=== PATIENT | female | born 1945 | race Caucasian/White ===

== ENCOUNTER → 2019-08-13 08:44 | Outpatient (CLI) | payer OTHER, SELFPAY ==
[2019-08-13 09:41] LABS: Add Manual Diff / Slide Review NO; Basophils Absolute Auto 100 /uL (0-100); Basophils Percent Auto 0.9 % (0-2); Eosinophils Absolute Auto 400 /uL (0-450); Eosinophils Percent Auto 7.2 % (2-4); Hematocrit 42.2 % (36-46); Hemoglobin 14.5 g/dL (12.0-16.0); Lymphocytes Absolute Auto 1700 /uL (1100-4500); Lymphocytes Percent Auto 29.7 % (25-40); Mean Corpuscular HGB Conc 34.2 % (30-36); Mean Corpuscular Hemoglobin 31.3 PG (26-34); Mean Corpuscular Volume 91.4 fL (80-100); Monocytes Absolute Auto 700 /uL (0-900); Monocytes Percent Auto 12.1 % (3-14); Neutrophils Absolute Auto 2800 /uL (1500-7000); Neutrophils Percent Auto 50.1 % (50-75); Platelet Count 264 X10^3/uL (150-400); Red Blood Cell Count 4.62 X10^6/uL (4.0-5.2); Red Cell Distribution Width 13.8 % (11.6-14.8); White Blood Cell Count 5.7 X10^3/uL (4.5-11.0)
[2019-08-13 10:02] LABS: Alanine Aminotransferase 28 IU/L (<35); Albumin 4.4 g/dL (3.5-5.0); Albumin Globulin Ratio 1.9 (1.0-2.8); Alkaline Phosphatase 73 U/L (38-126); Aspartate Aminotransferase 31 IU/L (14-36); Bilirubin Total 0.4 mg/dL (0.2-1.3); Blood Urea Nitrogen 14 mg/dL (7-17); Calcium 9.9 mg/dL (8.4-10.2); Carbon Dioxide 24 mmol/L (22-32); Chloride 101 mmol/L (98-107); Cholesterol 191 mg/dL (140-199); Estimated Glomerular Filt Rate > 60.0 mL/min (>60); Globulin 2.3 g/dL (1.7-4.1); Glucose 97 mg/dL (80-110); HDL Cholesterol 79 mg/dL (40-60); HEMOLYSIS < 15 (0-50); LDL Cholesterol Calculated 83 mg/dL (<100); Potassium 4.3 mmol/L (3.4-5.1); Sodium 136 mmol/L (137-145); Total Protein 6.7 g/dL (6.3-8.2); Triglycerides 147 mg/dL (35-150)
[2019-08-13 10:04] LABS: Creatinine Urine Random 123.3 mg/dL
[2019-08-13 10:06] LABS: Microalbumi Creatinin Ratio Ur 12.1 ug/mg CR (<30); Microalbumin Urine Random 1.5 mg/dL (0-1.6)
[2019-08-13 10:30] LABS: Thyroid Stimulating Hormone 4.19 uIU/mL (0.47-4.68)
== END ==
PROVIDERS: PCP Family Medicine; Visit Provider Family Medicine
DX: E78.5 Hyperlipidemia, unspecified (principal); I10 Essential (primary) hypertension; Z13.0 Encounter for screening for diseases of the blood and blood-forming organs and certain disorders involving the immune mechanism; Z13.29 Encounter for screening for other suspected endocrine disorder
CPT/HCPCS: 36415; 80053; 80061; 82043; 82570; 84443; 85025

== ENCOUNTER → 2019-08-19 13:28 | Outpatient (CLI) | payer MEDICARE, SELFPAY ==
[2019-08-21 12:40] LABS: Fecal Immunochemical Test NOT DETECTED (NOT DETECTED)
== END ==
PROVIDERS: PCP Family Medicine; Visit Provider Family Medicine
DX: Z12.11 Encounter for screening for malignant neoplasm of colon (principal)
CPT/HCPCS: 82274

== ENCOUNTER → 2019-11-03 11:52 | Outpatient (CLI) | payer MEDICARE, SELFPAY ==
--- NOTE | 2019-11-03 11:55 | DI.MG.S_ITS ---
BILATERAL DIGITAL SCREENING MAMMOGRAM 3D/2D WITH CAD: 11/03/2019 CLINICAL: Routine screening. Comparison is made to exams dated: 08/22/2016 mammogram, 08/22/2015 mammogram, and 03/15/2014 mammogram - [facility]. There are scattered fibroglandular elements in both breasts. Current study was also evaluated with a Computer Aided Detection (CAD) system. There are benign post operative findings in the left breast. No significant masses, calcifications, or other findings are seen in either breast. There has been no significant interval change. IMPRESSION: There is no mammographic evidence of malignancy. A 1 year screening mammogram is recommended. This exam was interpreted at Station ID: [id number]. NOTE: For mammograms, a report in lay terms will be sent to the patient. Approximately 15% of breast malignancies will not be visualized mammographically. In the management of a palpable breast mass, a negative mammogram must not discourage biopsy of a clinically suspicious lesion. Electronically Signed By: Rosemarie lopez/desirae:11/03/2019 13:32:49 letter sent: Normal Exam ACR BI-RADS Category 2: Benign Finding(s) 3342F
== END ==
PROVIDERS: PCP Family Medicine; Referring Provider Family Medicine; Visit Provider Family Medicine
DX: Z12.31 Encounter for screening mammogram for malignant neoplasm of breast (principal); M85.851 Other specified disorders of bone density and structure, right thigh; Z78.0 Asymptomatic menopausal state; Z90.722 Acquired absence of ovaries, bilateral
CPT/HCPCS: 77063; 77067; 77080

== ENCOUNTER → 2019-12-02 13:08 | Outpatient (CLI) | payer MEDICARE, SELFPAY ==
--- NOTE | 2019-12-02 13:10 | DI.RAD.S_ITS ---
PROCEDURE: XR FOOT LT MIN 3V INDICATIONS: injury, swelling, deformed TECHNIQUE: 3 views of the foot were acquired. COMPARISON: None. FINDINGS: Bones: No dislocations. No suspicious bony lesions. There is a diagonal fracture through the proximal phalanx of the fourth digit, with valgus angulation at the fracture plane. Soft tissues: No tibiotalar joint effusion. Achilles tendon appears normal. IMPRESSION: Acute appearing valgus angulated proximal fourth phalanx fracture, within the diaphysis. No foreign body seen. Dictated by: Holden Hernandez M.D. on 12/02/2019 at 14:02 Approved by: Holden Hernandez M.D. on 12/02/2019 at 14:04
== END ==
PROVIDERS: PCP Family Medicine; Referring Provider Family Medicine; Visit Provider Family Medicine
DX: S92.512A Displaced fracture of proximal phalanx of left lesser toe(s), initial encounter for closed fracture (principal); X58.XXXA Exposure to other specified factors, initial encounter
CPT/HCPCS: 73630

== ENCOUNTER → 2019-12-24 14:46 | Outpatient (CLI) | payer MEDICARE, SELFPAY ==
[2019-12-24 14:50] LABS: RBC Urine None Seen (0-5/HPF)
[2019-12-24 16:17] LABS: Appearance Urine UA SL CLOUDY; Bilirubin Urine UA NEGATIVE (NEGATIVE); Color Urine UA YELLOW; Glucose Urine UA NEGATIVE (Negative); Ketones Urine UA NEGATIVE (NEGATIVE); Leukocyte Esterase Urine UA 2+ (NEGATIVE); Nitrite Urine UA NEGATIVE (Negative); Occult Blood Urine UA 2+ (Negative); Protein Urine UA NEGATIVE (Negative); Urobilinogen Urine UA 0.2 E.U./dL (0.2)
[2019-12-24 16:30] LABS: Bacteria Urine Few (2-10); Culture Indicated Urine Specimen Cultured; WBC Urine 5-10/HPF (0-5/HPF)
== END ==
PROVIDERS: PCP Family Medicine; Referring Provider Family Medicine; Visit Provider Family Medicine
DX: R30.0 Dysuria (principal); R35.0 Frequency of micturition; R39.15 Urgency of urination
CPT/HCPCS: 81001; 87077; 87086; 87186

== ENCOUNTER → 2020-11-14 07:56 | Outpatient (CLI) | payer MEDICARE, SELFPAY ==
[2020-11-14 09:28] LABS: Alanine Aminotransferase 18 IU/L (<35); Albumin 4.2 g/dL (3.5-5.0); Albumin Globulin Ratio 1.6 (1.0-2.8); Alkaline Phosphatase 67 U/L (38-126); Aspartate Aminotransferase 27 IU/L (14-36); BUN Creatinine Ratio 14.3 (6-22); Bilirubin Total 0.2 mg/dL (0.2-1.3); Blood Urea Nitrogen 10 mg/dL (7-17); Calcium 9.6 mg/dL (8.4-10.2); Carbon Dioxide 30 mmol/L (22-32); Chloride 101 mmol/L (98-107); Cholesterol 190 mg/dL (140-199); Estimated Glomerular Filt Rate > 60.0 mL/min (>60); Globulin 2.7 g/dL (1.7-4.1); Glucose 101 mg/dL (80-110); HDL Cholesterol 80 mg/dL (40-60); HEMOLYSIS < 15 (0-50); LDL Cholesterol Calculated 85 mg/dL (<100); Sodium 137 mmol/L (137-145); Total Protein 6.9 g/dL (6.3-8.2); Triglycerides 125 mg/dL (35-150)
[2020-11-14 09:29] LABS: Potassium 5.4 mmol/L (3.4-5.1)
== END ==
PROVIDERS: PCP Family Medicine; Referring Provider Family Medicine; Visit Provider Family Medicine
DX: I10 Essential (primary) hypertension (principal); E78.5 Hyperlipidemia, unspecified
CPT/HCPCS: 36415; 80053; 80061

== ENCOUNTER → 2020-11-21 15:25 | Outpatient (CLI) | payer MEDICARE, SELFPAY ==
--- NOTE | 2020-11-21 | DI.MG.S_ITS ---
BILATERAL DIGITAL SCREENING MAMMOGRAM 3D/2D WITH CAD: 11/21/2020 CLINICAL: Routine screening. Comparison is made to exams dated: 11/03/2019 mammogram - [facility], 08/22/2016 mammogram, and 08/22/2015 mammogram - [facility]. There are scattered fibroglandular elements in both breasts. Current study was also evaluated with a Computer Aided Detection (CAD) system. There are benign vascular calcifications in both breasts. There also are benign post operative findings in the left breast. No significant masses, calcifications, or other findings are seen in either breast. There has been no significant interval change. IMPRESSION: BENIGN There is no mammographic evidence of malignancy. A 1 year screening mammogram is recommended. This exam was interpreted at Station ID: [id number]. NOTE: For mammograms, a report in lay terms will be sent to the patient. Approximately 15% of breast malignancies will not be visualized mammographically. In the management of a palpable breast mass, a negative mammogram must not discourage biopsy of a clinically suspicious lesion. Electronically Signed By: Db kraus/desirae:11/21/2020 16:43:42 copy to: Kimberli Pedroza letter sent: Normal Exam ACR BI-RADS Category 2: Benign Finding(s) 3342F
[2020-11-21 16:33] LABS: HEMOLYSIS < 15 (0-50); Potassium 4.4 mmol/L (3.4-5.1)
== END ==
PROVIDERS: PCP Family Medicine; Referring Provider Family Medicine; Visit Provider Family Medicine
DX: Z12.31 Encounter for screening mammogram for malignant neoplasm of breast (principal); E87.5 Hyperkalemia
CPT/HCPCS: 36415; 77063; 77067; 84132

== ENCOUNTER → 2020-12-29 09:20 | Outpatient (CLI) | payer MEDICARE, SELFPAY ==
[2020-12-29 10:55] LABS: COVID19 -Nasal RAPID Negative (Negative)
== END ==
PROVIDERS: PCP Family Medicine; Visit Provider Surgery
DX: Z20.822 Contact with and (suspected) exposure to COVID-19 (principal)
CPT/HCPCS: 87635; C9803

== ENCOUNTER 2021-01-01 07:00 | Day surgery (SDC) | payer MEDICARE, SELFPAY ==
[2021-01-01] VITALS (7 sets, daily range): BP systolic 115–138; BP diastolic 63–83; PULSE 78–93; RESP 12–16; TEMP 36.6–36.9; O2SAT 96–99; BMI 27.3
[2021-01-01] MEDS: LACTATED RINGERS 1,000 ML 200 ML IV (08:02)
--- NOTE | 2021-01-01 08:22 | P.HP_ITS ---
History of Present Illness History of Present Illness Date Patient Seen: 01/01/21 Time Patient Seen: 08:23 Chief complaint: [facility] [place] Narrative: The patient presents for colorectal sreening. Her most recent colonoscopy was 10 years ago and normal. No personal or family history of colon cancer. On further history denies any recent gastrointestinal symptoms. No nausea, vomiting, abdominal pain, loss of appetite, unexplained weight loss, change in bowel habits, diarrhea, constipation, melena, hematochezia, or bright red blood per rectum. Patient History Medical History Anxiety Arthritis Chicken pox (~1945) Chronic back pain Constipation Depression Endometriosis Essential hypertension Fibroids Hearing loss Hyperlipidemia Measles Mumps Neck pain Neck problem Osteoarthritis Post traumatic stress disorder (PTSD) (~1986) Seasonal allergies Skin cancer Stroke (~2004) Surgical History Anesthesia Cataracts, bilateral (~1998) Fractures (~2001) H/O toe surgery Hemorrhoid (~1973) History of bunionectomy History of hysterectomy (~1994) Hx of removal of ovary (~1967) Melanoma Family & Social History Family History Father Heart disease Brother Alzheimer's disease Sister Alcoholism Mental health problem Stroke Mother No problems noted. Social History: household members spouse lives independently Yes Tobacco & Substance use: Smoking Status Former smoker alcohol intake current alcohol intake frequency 3 or more drinks per day Substance Use Type does not use Meds Home Medications and Allergies Home Medications Medication Instructions Recorded Confirmed Type acyclovir 400 mg tablet 400 mg PO TID #30 tab 10/21/19 01/01/21 Rx aspirin 325 mg tablet 325 mg PO DAILY #90 tab 10/21/19 01/01/21 Rx losartan 50 mg tablet See Rx Instructions .ROUTE 11/09/20 01/01/21 Rx .COMPLEX #90 tab sertraline 100 mg tablet 100 mg PO DAILY #90 tab 11/09/20 01/01/21 Rx simvastatin 80 mg tablet 80 mg PO BEDTIME #90 tab 11/09/20 01/01/21 Rx sodium,potassium,mag sulfates 17.5 177 ml PO DAILY #354 ml 12/07/20 01/01/21 Rx gram-3.13 gram-1.6 gram oral soln zolpidem 10 mg tablet See Rx Instructions .ROUTE 12/12/20 01/01/21 Rx .COMPLEX #90 tab acyclovir-hydrocortisone 1 applic TOPICAL 5XD 01/01/21 01/01/21 History magnesium 15 mg PO BEDTIME 01/01/21 01/01/21 History Allergies Allergy/AdvReac Type Severity Reaction Status Date / Time No Known Drug Allergies Allergy Verified 01/01/21 07:51 Review of Systems Review of Systems ROS: Yes All systems reviewed with the patient and are negative except as otherw ise documented Exam Vital Signs (past 8 hours): - 01/01/21 08:02 Temperature 97.8 F Pulse Rate 93 H Respiratory Rate 16 Blood Pressure 124/83 Pulse Oximetry 98 Oxygen Delivery Method Room Air Narrative Exam Narrative: GENERAL-well developed elderly woman, no acute distress HEENT-no scleral icterus, hearing intact NECK-no JVD, trachea midline CVS- regular rate, no peripheral edema RESP-unlabored respiratory effort, no audible wheezing GI-soft, nontender nondistended MSK-no cyanosis or clubbing, extremities without deformity SKIN-warm, dry NEURO-alert and oriented, no focal deficits PYSCH-Appropriate mood and affect Assessment & Plan Assessment & Plan narrative: The patient requires colorectal screening and colonoscopy is recommended. Technical details were discussed. Risks, benefits, alternatives explained. Risks including but not limited to myocardial infarction, aspiration, bleeding, pain, missed lesion, incomplete examination, need for further radiographic studies, colonic perforation, and need for major abdominal surgery were discussed. All questions were answered to their satisfaction, and they are in agreement with this plan.
[2021-01-01] MEDS: fentaNYL 250 MCG/5 ML INJ IV (08:44)
[2021-01-01] MEDS: MIDAZOLAM 5 MG/5 ML VIAL IV (09:03)
--- NOTE | 2021-01-01 09:13 | PM.OP.ENDO ---
Operative Date/Time/Diagnoses Date of procedure: 01/01/21 Time of procedure: 09:13 Pre-op diagnosis: Screening colonoscopy Post-op diagnosis: same Procedure & Clinicians Study performed: Incomplete colonoscopy Same procedure as scheduled: Yes Indications: Screening Surgeon: Varun Mills Procedure Notes Procedure in detail: Medications: Conscious sedation using 7 mg IV midazolam and 250 mcg IV of fentanyl The history and physical was performed/updated and the patient is ASA class is 2 The procedure was discussed in detail with the patient. Potential risks complications including infection, bleeding, missed diagnosis, perforation, need for surgery, and were explained. Their questions were answered and informed consent was obtained. Patient was brought to the procedure room and placed standard monitoring equipment. The patient's vital signs were monitored continuously throughout the entire procedure. Prior to starting time-out was performed. The patient was placed in the left lateral recumbent position. Procedural sedation was administered. Examination began with a thorough inspection of the perianal area there was no evidence of fissures, fistulae, external hemorrhoids or cutaneous malignancy. The colonoscopy scope was then placed into the anal canal and was advanced forward. She has a history of multiple prior abdominal surgeries and I was able to visualize the ileocecal of valve but could not intubate the cecum. Multiple attempts at repositioning using the stiffener irrigation and external pressure were made but despite these efforts with could not intubate the cecum. The scope was then slowly withdrawn examining mucosal folds on the withdrawal. 1. No masses or polyps 2. Grade 1 internal hemorrhoids The patient tolerated the procedure well. They will be discharged once criteria are met. The prep was of good/excellent quality. The withdrawl time was 7 minutes. The sedation time was 38 minutes. Specimen(s): none sent Complications: none Impression: Incomplete colonoscopy Post-procedure Plan for aftercare: Barium enema Disposition: same day surgery
== END 2021-01-01 09:47 | disposition home or self-care (01) ==
PROVIDERS: PCP Family Medicine; Referring Provider Family Medicine; Visit Provider Surgery
PROC: 0DJD8ZZ Inspection of Lower Intestinal Tract, Via Natural or Artificial Opening Endoscopic (ICD-10-PCS; CPT 45378; principal; 2021-01-01 08:30)
DX: Z12.11 Encounter for screening for malignant neoplasm of colon (principal); K64.0 First degree hemorrhoids; Z53.09 Procedure and treatment not carried out because of other contraindication
CPT/HCPCS: G0105; 99152; 99153; J2250; J3010

== ENCOUNTER → 2021-02-05 13:05 | Outpatient (CLI) | payer MEDICARE, SELFPAY ==
--- NOTE | 2021-02-05 13:07 | DI.RAD.S_ITS ---
PROCEDURE: FL BARIUM ENEMA INDICATIONS: Incomplete colonoscopy COMPARISON: None. FINDINGS: KUB: Preprocedural wearing apparel assembler film demonstrates a normal bowel gas pattern. No suspicious abdominal calcifications. Visualized solid organ contours appear normal in size. No suspicious bony lesions. Colon: The cecum is not well evaluated. The appendix is not visualized.. No strictures or extrinsic mass effects are identified. No colonic fistulae or perforations. Colon caliber appears normal. IMPRESSION: Suboptimal evaluation of the cecum otherwise negative examination as above. Dictated by: Christian Ji M.D. on 02/05/2021 at 16:22 Approved by: Christian Ji M.D. on 02/05/2021 at 16:24
== END ==
PROVIDERS: PCP Family Medicine; Referring Provider Surgery; Visit Provider Surgery
DX: Z12.11 Encounter for screening for malignant neoplasm of colon (principal)
CPT/HCPCS: 74270

== ENCOUNTER → 2022-01-17 09:22 | Outpatient (CLI) | payer MEDICARE, SELFPAY ==
[2022-01-17 10:16] LABS: Alanine Aminotransferase 19 IU/L (<35); Albumin 4.5 g/dL (3.5-5.0); Albumin Globulin Ratio 1.7 (1.0-2.8); Alkaline Phosphatase 67 U/L (38-126); Aspartate Aminotransferase 29 IU/L (14-36); BUN Creatinine Ratio 23.2 (6-22); Bilirubin Total 0.4 mg/dL (0.2-1.3); Blood Urea Nitrogen 16 mg/dL (7-17); Calcium 9.2 mg/dL (8.4-10.2); Carbon Dioxide 24 mmol/L (22-32); Chloride 102 mmol/L (98-107); Estimated Glomerular Filt Rate > 60 mL/min (>60); Globulin 2.6 g/dL (1.7-4.1); Glucose 108 mg/dL (80-110); HEMOLYSIS < 15 (0-50); Potassium 4.5 mmol/L (3.4-5.1); Sodium 136 mmol/L (137-145); Total Protein 7.1 g/dL (6.3-8.2)
== END ==
PROVIDERS: PCP Family Medicine; Referring Provider Family Medicine; Visit Provider Family Medicine
DX: I10 Essential (primary) hypertension (principal)
CPT/HCPCS: 36415; 80053

== ENCOUNTER → 2022-03-05 10:22 | Outpatient (CLI) | payer MEDICARE, SELFPAY | PROVIDERS: PCP Family Medicine; Referring Provider Family Medicine; Visit Provider Family Medicine | DX: M85.851 Other specified disorders of bone density and structure, right thigh (principal); Z13.820 Encounter for screening for osteoporosis; M85.852 Other specified disorders of bone density and structure, left thigh; Z78.0 Asymptomatic menopausal state | CPT/HCPCS: 77080 ==

== ENCOUNTER → 2023-01-07 14:04 | Outpatient (CLI) | payer MEDICARE, SELFPAY ==
--- NOTE | 2023-01-07 14:06 | DI.RAD.S_ITS ---
PROCEDURE: XR CHEST 2V INDICATIONS: Shortness of breath, cough TECHNIQUE: 2 views of the chest were acquired. COMPARISON: None. FINDINGS: Surgical changes and devices: None. Lungs and pleura: Lungs are clear. No pleural effusions or pneumothorax. Peribronchial cuffing. Mediastinum: Mediastinal contours are normal. Heart size is normal. Bones and chest wall: No suspicious bony abnormalities. Soft tissues appear unremarkable. IMPRESSION: Peribronchial cuffing, typically indicating infectious or inflammatory bronchitis. Dictated by: Rl Tobar M.D. on 01/07/2023 at 13:37 Approved by: Rl Tobar M.D. on 01/07/2023 at 13:39
== END ==
PROVIDERS: PCP Family Medicine; Referring Provider Physician Assistant; Visit Provider Physician Assistant
DX: R91.8 Other nonspecific abnormal finding of lung field (principal)
CPT/HCPCS: 71046

== ENCOUNTER → 2023-01-17 14:30 | Outpatient (CLI) | payer MEDICARE, SELFPAY ==
[2023-01-17 15:33] LABS: Add Manual Diff / Slide Review NO; Basophils Absolute Auto 100 /uL (0-100); Basophils Percent Auto 0.9 % (0-2); Eosinophils Absolute Auto 200 /uL (0-450); Eosinophils Percent Auto 2.9 % (2-4); Hematocrit 42.3 % (36-46); Lymphocytes Absolute Auto 2100 /uL (1100-4500); Lymphocytes Percent Auto 25.9 % (25-40); Mean Corpuscular HGB Conc 33.1 % (30-36); Mean Corpuscular Hemoglobin 28.3 PG (26-34); Mean Corpuscular Volume 85.2 fL (80-100); Monocytes Absolute Auto 1000 /uL (0-900); Monocytes Percent Auto 11.6 % (3-14); Neutrophils Absolute Auto 4900 /uL (1500-7000); Neutrophils Percent Auto 58.7 % (50-75); Platelet Count 364 X10^3/uL (150-400); Red Blood Cell Count 4.96 X10^6/uL (4.0-5.2); Red Cell Distribution Width 14.5 % (11.6-14.8); White Blood Cell Count 8.3 X10^3/uL (4.5-11.0)
[2023-01-17 16:32] LABS: Alanine Aminotransferase 21 IU/L (<35); Albumin 4.5 g/dL (3.5-5.0); Albumin Globulin Ratio 1.6 (1.0-2.8); Alkaline Phosphatase 74 U/L (38-126); Aspartate Aminotransferase 29 IU/L (14-36); Bilirubin Total 0.5 mg/dL (0.2-1.3); Blood Urea Nitrogen 14 mg/dL (7-17); Calcium 9.7 mg/dL (8.4-10.2); Carbon Dioxide 28 mmol/L (22-32); Chloride 95 mmol/L (98-107); Cholesterol 211 mg/dL (140-199); Estimated Glomerular Filt Rate > 60 mL/min (>60); Globulin 2.8 g/dL (1.7-4.1); Glucose 96 mg/dL (80-110); HDL Cholesterol 72 mg/dL (40-60); HEMOLYSIS < 15 (0-50); LDL Cholesterol Calculated 91 mg/dL (<100); Potassium 4.7 mmol/L (3.4-5.1); Sodium 131 mmol/L (137-145); Total Protein 7.3 g/dL (6.3-8.2); Triglycerides 239 mg/dL (35-150)
[2023-01-17 17:18] LABS: Vitamin B12 239 pg/mL (239-931)
[2023-01-17 17:24] LABS: TSH w/ Reflex to FT4 3.01 uIU/mL (0.47-4.68)
== END ==
PROVIDERS: PCP Family Medicine; Referring Provider Family Medicine; Visit Provider Family Medicine
DX: E78.5 Hyperlipidemia, unspecified (principal); I63.9 Cerebral infarction, unspecified; I10 Essential (primary) hypertension; R05.8 Other specified cough
CPT/HCPCS: 36415; 80053; 80061; 82607; 84443; 85025

== ENCOUNTER → 2023-07-07 10:54 | Outpatient (CLI) | payer MEDICARE, SELFPAY | PROVIDERS: PCP Family Medicine; Visit Provider Nurse Practitioner Family | DX: R30.0 Dysuria (principal) | CPT/HCPCS: 87077; 87086; 87186 ==

== ENCOUNTER → 2023-07-21 10:31 | Outpatient (CLI) | payer MEDICARE, SELFPAY | PROVIDERS: PCP Family Medicine; Visit Provider Nurse Practitioner Family | DX: R30.0 Dysuria (principal) | CPT/HCPCS: 87077; 87086; 87186 ==

== ENCOUNTER → 2023-08-05 19:19 | Outpatient (CLI) | payer MEDICARE, SELFPAY ==
--- NOTE | 2023-08-05 19:24 | DI.MRI.S_ITS ---
PROCEDURE: MR CERVICAL SPINE WO CON INDICATIONS: neck, radiculopathy TECHNIQUE: Noncontrast sagittal T1 spin echo and T2 fast spin echo, sagittal STIR, foraminal oblique sagittal T2 fast spin echo, and axial gradient echo or T2 fast spin echo through the cervical spine. COMPARISON: [facility], MR, C-SPINE WITHOUT CONTRAST, 08/26/2017, 12:06. FINDINGS: Image quality: Excellent. Alignment and Curvature: There is normal bony alignment. Bone Marrow: Marrow demonstrates normal overall signal. Spinal Cord: Visualized spinal cord has normal size and signal. No cerebellar tonsillar herniation. Paraspinous Soft Tissues: No paravertebral masses. Prevertebral soft tissues are normal in thickness. C2-C3: Disc bulge with minimal superimposed central posterior disc protrusion. No canal stenosis or foraminal stenosis. Left facet hypertrophy. C3-C4: Disc bulge has slightly increased. There is posterior ligamentous hypertrophy. There is no significant canal stenosis. AP diameter of the central canal is 10.6 mm. There is bilateral facet hypertrophy, right greater than left. There is slight interval increase in foraminal narrowing, severe on the right and moderate to severe on the left. There is bilateral foraminal C4 nerve root impingement. C4-C5: Chronic disc height loss. Diffuse posterior disc post osteophyte, eccentric to the left. No significant central canal stenosis. AP diameter of the central canal is 11.6 mm. There is borderline narrowing of the left side of the canal. Prominent bilateral uncovertebral joint hypertrophy. Bilateral facet hypertrophy, left greater than right. Slight interval progression of bilateral foraminal narrowing, moderate to severe on the right and severe on the left with bilateral foraminal C5 nerve root impingement. C5-C6: Diffuse posterior disc osteophyte complex, relatively stable. No central canal stenosis. AP diameter of the central canal measures approximately 10.9 mm. Bilateral uncovertebral joint hypertrophy. Bilateral facet hypertrophy. Mild interval progression of right foraminal narrowing, moderate, with flattening deformity on the exiting right C6 nerve root. Mild to moderate left foraminal narrowing. C6-C7: Disc bulge. No canal stenosis. There is bilateral uncovertebral joint hypertrophy. There is a stable small right foraminal disc protrusion which somewhat impinges on the right C7 nerve root in the right foramen. Reference T2 sagittal image 8 of series 4. The left foramen is patent. C7-T1: No canal stenosis or foraminal stenosis. Right facet hypertrophy. IMPRESSION: 1. Diffuse spondylitic change, with multilevel facet arthropathy as well as multilevel uncovertebral joint hypertrophy. 2. No significant canal stenosis noted. There is borderline stenosis of the left side of the canal at C4-C5. 3. Significant multilevel foraminal narrowing as described above. This includes slight interval progression at C3-C4, C4-C5, and C5-C6. Of note, there is severe right foraminal narrowing and moderate to severe left foraminal narrowing at C3-C4 and C4-C5. There is also a stable small right foraminal disc protrusion at C6-C7 which somewhat impinges on the right C7 nerve root in the foramen. Dictated by: Lyle Grant M.D. on 08/06/2023 at 10:02 Approved by: Lyle Gratn M.D. on 08/06/2023 at 10:22
== END ==
PROVIDERS: PCP Family Medicine; Referring Provider Family Medicine; Visit Provider Family Medicine
DX: M47.22 Other spondylosis with radiculopathy, cervical region (principal); M48.02 Spinal stenosis, cervical region; M50.123 Cervical disc disorder at C6-C7 level with radiculopathy; G89.29 Other chronic pain
CPT/HCPCS: 72141

== ENCOUNTER 2023-10-01 10:30 | Emergency (ER) | payer MEDICARE, SELFPAY ==
[2023-10-01 10:36] VITALS: BP 144/93; PULSE 106; RESP 20; TEMP 36.4; O2SAT 97; BMI 22.3
--- NOTE | 2023-10-01 11:13 | ED.BACK ---
HPI - Back Pain/Injury <Hanny Mcneil PA-C - Last Filed: 10/02/23 19:21> General Chief Complaint: Back Pain/Injury Stated Complaint: severe back pain Time Seen by Provider: 10/01/23 11:11 Source: patient History of Present Illness HPI Narrative: 78-year-old woman history of anxiety depression chronic back pain hypertension and hyperlipidemia as well as melanoma presents with her with concern for constant 9/10 left flank/low back pain and left-sided abdominal pains for the past 2 weeks that have been sharp and constant. Also reduced appetite and nausea. Patient describes the pain as sharp and constant in her left low back/upper buttock and she states it radiates sometimes around to her left abdomen. She ultimately acknowledges she has actually had reduced appetite and problems with nausea since May. She also endorses 10 lb weight loss that was nonintentional in the last 8 months. She denies chest pain, shortness of breath, diarrhea, constipation, urinary symptoms or vomiting. Related Data Home Medications Medication Instructions Recorded Confirmed magnesium 500 mg tablet 15 mg PO BEDTIME 01/01/21 08/05/23 Previous Rx's Medication Instructions Recorded aspirin 325 mg tablet 325 mg PO DAILY #90 tabs 10/21/19 acyclovir 400 mg tablet 400 mg PO TID #30 tabs 04/22/23 acyclovir 5 %-hydrocortisone 1 % 1 applic topical 5XD #15 grams 04/22/23 topical cream simvastatin 80 mg tablet 80 mg PO BEDTIME #90 tabs 04/22/23 zolpidem 12.5 mg tablet,extended 12.5 mg PO BEDTIME PRN insomnia 04/22/23 release,multiphase (Ambien CR) #90 tabs losartan 50 mg tablet 50 mg PO DAILY #90 tabs 07/07/23 cyclobenzaprine 5 mg tablet 5 mg PO Q8H PRN muscle spasm #30 08/05/23 tabs acetaminophen 300 mg-codeine 30 mg 1 tab PO Q8H PRN pain #20 tabs 09/30/23 tablet ondansetron 4 mg disintegrating 4 mg PO Q8H PRN nausea and 10/01/23 tablet vomiting 10 days #30 tabs Allergies Allergy/AdvReac Type Severity Reaction Status Date / Time No Known Drug Allergies Allergy Verified 10/01/23 10:44 Review of Systems <Hanny Mcneil PA-C - Last Filed: 10/02/23 19:21> Review of Systems Narrative: See HPI Patient History <Hanny Mcneil PA-C - Last Filed: 10/02/23 19:21> Medical History Insomnia Osteopenia Neck pain Arthritis Constipation Hyperlipidemia Essential hypertension Osteoarthritis Seasonal allergies Post traumatic stress disorder (PTSD) (~1986) Depression Anxiety Stroke (~2004) Neck problem Chronic back pain Mumps Measles Chicken pox (~1945) Hearing loss Fibroids Endometriosis Skin cancer Surgical History H/O toe surgery Anesthesia Hx of removal of ovary (~1967) History of bunionectomy Fractures (~2001) Cataracts, bilateral (~1998) History of hysterectomy (~1994) Hemorrhoid (~1973) Melanoma Family History Father Heart disease Brother Alzheimer's disease Sister Alcoholism Mental health problem Stroke Mother No problems noted. Social History marital status: number of children: 3 household members: spouse lives independently: Yes education level: high school occupational status: other Smoking Status: Former smoker alcohol intake: current substance use type: does not use Smoking Status: Former smoker alcohol intake frequency: 3 or more drinks per day Substance Use Type: does not use Exam <Hanny Mcneil PA-C - Last Filed: 10/02/23 19:21> Narrative Exam Narrative: GENERAL: [78] year old patient appears stated age. Well-developed patient, in moderate distress, uncomfortable apperaing with pillow strategically placed behind her back. HEAD: Atraumatic. Normocephalic. EYES: Pupils equal round and reactive. Extraocular motions intact. No scleral icterus. No injection or drainage. ENT: Nose without bleeding, purulent drainage. Airway patent. NECK: Trachea midline. Non tender CARDIOVASCULAR: Regular rate and rhythm without murmurs, gallops, or rubs. RESPIRATORY: Clear to auscultation. Breath sounds equal bilaterally. No wheezes, rales, or rhonchi. GASTROINTESTINAL: Abdomen soft, there is a large firm mass palpable in the LUQ that is tender to palpation. Pt also has epigastric tenderness. RLQ non-tender, nondistended. EXTREMITIES: No edema or joint tenderness. BACK: there is a mobile mildly tender mass without fluctuance or heat or erythema at the patients endorsed side of low back pain on the left posterior/upper buttock approximately 21x7 CM. Back is otherwise Nontender without deformity or crepitance. No flank/CVA tenderness. NEURO: AOx3. SKIN: No rash or erythema of visible areas Initial Vital Signs Initial Vital Signs: Vital Signs Temperature 97.5 F L 10/01/23 10:36 Pulse Rate 106 H 10/01/23 10:36 Respiratory Rate 20 10/01/23 10:36 Blood Pressure 144/93 H 10/01/23 10:36 Pulse Oximetry 97 10/01/23 10:36 Oxygen Delivery Method Room Air 10/01/23 10:36 <Francine Woodward DO - Last Filed: 10/04/23 07:39> Initial Vital Signs Initial Vital Signs: Vital Signs Temperature 97.5 F L 10/01/23 10:36 Pulse Rate 106 H 10/01/23 10:36 Respiratory Rate 20 10/01/23 10:36 Blood Pressure 144/93 H 10/01/23 10:36 Pulse Oximetry 97 10/01/23 10:36 Oxygen Delivery Method Room Air 10/01/23 10:36 Course <Hanny Mcneil PA-C - Last Filed: 10/02/23 19:21> Course Course Narrative: Discussed with the patient and her Catalina that she has a large mass possibly splenic or pancreatic and enlarged lymph nodes in her abdomen likely concerning for metastatic process. Patient confirms she has not currently following with an oncologist it was an oncologist who removed her melanoma previously at [facility] and she was told that it had been removed completely. She states it has been at least 2 years since her last PET scan. She would be interested in seeing Oncology here at our hospital if this is an option. She has not been following with any oncolologist recently. [address] Woodward about this patient regarding possibly getting additional imaging of head neck and chest for further evaluation. She recommends consult with Oncology at [facility] and patient's PCP, Dr. Laguerre regarding need for urgent follow-up and options for pain control. 1400 Oncology referral line called and message left. Will attempt contact [facility] directly through [facility] Awaiting call back from pt's PCP office provider there today. Pt's PCP is currently away. 1425 On-call general surgeon Dr. Mills is currently in the OR, will call back. Consult ordered. 1500 Spoke with on-call surgeon who feels that there is not likely to be a palliative surgical option for the patient from his perspective, course will need oncology and PCP follow-up. Recommends discussion of end of life care and goals. 1558 Orders Ordered: Discontinued Medications Hydromorphone HCl (Hydromorphone 0.5 Mg Inj) 0.5 mg IV Q2H PRN PRN Reason: Pain, Moderate (4-6) Last Admin: 10/01/23 13:38 Dose: 0.5 mg Documented By: Admin: 10/01/23 12:04 Dose: 0.5 mg Documented By: ANNIE Ondansetron HCl (Ondansetron 4 Mg/2 Ml Inj) 4 mg IV NOW ONE Stop: 10/01/23 11:47 Last Admin: 10/01/23 12:02 Dose: 4 mg Documented By: RL Vital Signs Vital signs: Vital Signs - 8 hr 10/01/23 13:42 10/01/23 17:07 Temperature 98.0 F Pulse Rate 100 H 98 H Respiratory Rate 20 18 Blood Pressure 136/74 149/72 H Pulse Oximetry 95 97 Oxygen Delivery Method Room Air Room Air <Francine Woodward, - Last Filed: 10/04/23 07:39> Orders Ordered: Discontinued Medications Hydromorphone HCl (Hydromorphone 0.5 Mg Inj) 0.5 mg IV Q2H PRN PRN Reason: Pain, Moderate (4-6) Last Admin: 10/01/23 13:38 Dose: 0.5 mg Documented By: Admin: 10/01/23 12:04 Dose: 0.5 mg Documented By: ANNIE Ondansetron HCl (Ondansetron 4 Mg/2 Ml Inj) 4 mg IV NOW ONE Stop: 10/01/23 11:47 Last Admin: 10/01/23 12:02 Dose: 4 mg Documented By: RL Vital Signs Vital signs: Vital Signs - 8 hr 10/01/23 13:42 10/01/23 17:07 Temperature 98.0 F Pulse Rate 100 H 98 H Respiratory Rate 20 18 Blood Pressure 136/74 149/72 H Pulse Oximetry 95 97 Oxygen Delivery Method Room Air Room Air MDM - Back Pain/Injury <Hanny Mcneil PA-C - Last Filed: 10/02/23 19:21> Differential Diagnosis Differential diagnosis: Likely other (Abdominal mass, likely metastatic cancer) Lab Data Attestation: I reviewed the patient's lab results. 10/01/23 11:58 10/01/23 11:58 Labs: Lab Results 10/01/23 10/01/23 Range/Units 11:23 11:58 WBC 11.9 H (4.5-11.0) X10^3/uL RBC 4.66 (4.0-5.2) X10^6/uL Hgb 12.9 (12.0-16.0) g/dL Hct 40.2 (36-46) % MCV 86.2 (80-100) fL MCH 27.7 (26-34) PG MCHC 32.1 (30-36) % RDW 14.1 (11.6-14.8) % Plt Count 559 H (150-400) X10^3/uL Neut % (Auto) 70.1 (50-75) % Lymph % (Auto) 14.7 L (25-40) % [place] % (Auto) 12.3 (3-14) % Eos % (Auto) 1.7 L (2-4) % Baso % (Auto) 1.2 (0-2) % Neut # (Auto) 8300 H (9552-0570) /uL Lymph # (Auto) 1700 (8620-5085) /uL [place] # (Auto) 1500 H (0-900) /uL Eos # (Auto) 200 (0-450) /uL Baso # (Auto) 100 (0-100) /uL Sodium 133 L (137-145) mmol/L Potassium 3.9 (3.4-5.1) mmol/L Chloride 97 L (98-107) mmol/L Carbon Dioxide 24 (22-32) mmol/L BUN 12 (7-17) mg/dL Creatinine 0.48 L (0.52-1.04) mg/dL Estimated GFR > 60 (>60) mL/min BUN/Creatinine Ratio 25.0 H (6-22) Glucose 97 (80-110) mg/dL Calcium 9.4 (8.4-10.2) mg/dL Total Bilirubin 0.5 (0.2-1.3) mg/dL AST 34 (14-36) IU/L ALT 20 (<35) IU/L Alkaline Phosphatase 93 (38-126) U/L Total Protein 6.8 (6.3-8.2) g/dL Albumin 3.8 (3.5-5.0) g/dL Globulin 3.0 (1.7-4.1) g/dL Albumin/Globulin Ratio 1.3 (1.0-2.8) Lipase 241 (23-300) U/L Urine RBC 1-5/hpf (0-5/HPF) Urine WBC 10-30/hpf H (0-5/HPF) Ur Squamous Epith Cells 1-5 /hpf (0-5/HPF) Urine Bacteria Many (>30) H (None) Ur Culture Indicated? Specimen cultured Vol Urine Centrifuged 10ml (spun) Urine Dip Bedside Urine Glucose Negative Bedside Urine Bilirubin - Negative Bedside Urine Ketone +/- 5 Urine Specific [place] 1.025 Bedside Urine Occult Blood - Negative Bedside Urine pH 6.0 Bedside Urine Protein - Negative Bedside Urine Urobilinogen - Negative Bedside Urine Nitrite + Positive Bedside Urine Leukocytes + [address] scan - abdomen/pelvis: My Impression: Agree with Radiology interpretation Radiologist's Impression: [place] [address] CT Scan Report Signed Patient: Myah Lowry MR#: [id number] : 1945 Acct:[id number] Age/Sex: 78 / F Date of Service: 10/01/23 Loc: ED Accession Number: [id number] Procedure: CT abdomen pelvis w con Ordering Provider: Hanny Mcneil P.A-C PROCEDURE: CT ABDOMEN PELVIS W CON INDICATIONS: left UQ abd mass/pain, nausea x4mo worsening TECHNIQUE: After the administration of intravenous contrast, axial sections acquired from the lung bases to the pubic symphysis. Coronal and sagittal reformats were performed. For radiation dose reduction, the following was used: automated exposure control, adjustment of mA and/or kV according to patient size. COMPARISON: None. FINDINGS: Image quality: Diagnostic. Lower Chest: No significant findings. ABDOMEN: Liver: No solid mass. Gallbladder: No radiopaque gallstones or wall thickening. Biliary ducts: No biliary dilation. Pancreas: No ductal dilation. Pancreas and Spleen: Within the left upper quadrant there is a 16.7 x 9.1 x 13.1 cm heterogeneously enhancing mass. There is a small appearance of normal spleen along the superior most aspect. However, it is otherwise indistinguishable from the larger mass. Arising from the medial aspect of the mass is abnormal soft tissue densities which infiltrate the pancreas. Adrenal Glands: No adrenal nodules. Kidneys and Ureters: No hydronephrosis. No solid mass. No complex renal cystic lesion which requires follow up. Stomach and Bowel: Normal colonic caliber, without significant wall thickening. Ventral Wall: No significant ventral hernia. Abdominal Nodes: Multiple periaortic and aortic caval soft tissue masses are present. A confluent lobulated mass in the left periaortic region measures 5.2 x 5.3 cm on series 2, image 36 causing superior displacement of the left renal vein. In additional, smaller abnormal lymph nodes are present. There is a low-attenuation mesenteric mass in the anterior right abdomen on series 2, image 46 measuring 1.9 x 1.9 cm. Additional focus is present in the left anterior abdomen on series 2, image 37 measuring 2.4 x 2.4 cm. Additional smaller foci are present including 1.5 x 1.8 cm series 2, image 34 in the right upper abdomen. Vessels: Aorta and inferior vena cava are normal in size. PELVIS: Pelvic Organs: Unremarkable. Bladder: No bladder wall thickening, accounting for underdistention. Pelvic Nodes: No enlarged lymph nodes. Miscellaneous: No inguinal hernias are seen. Bones: No aggressive osseous abnormality. IMPRESSION: Large left upper quadrant mass becoming indistinguishable from the spleen this is suspected to be a large infiltrating splenic mass. However, and originally distinct mass which has secondarily invaded the spleen cannot be definitively excluded. However, it is in direct approximation to abnormal soft tissue densities arising from the medial central portion into the pancreas. Again, primary pancreatic malignancy versus secondary extension is difficult to determine. Multiple areas of abnormal adenopathy within the abdomen as well as abnormal soft tissue masses within the mesenteric fat, all consistent with malignancy/metastatic disease. Dictated by: Christine Guaman M.D. on 10/01/2023 at 13:18 Approved by: Christine Guaman M.D. on 10/01/2023 at 13:26 Treatment and disposition Shared decision making:: Shared decision-making was used to determine the patient's plan for evaluation today in the emergency department and plan for outpatient follow-up. MDM Narrative Medical decision making narrative: This is a very pleasant 78-year-old female with a history of osteopenia, hyperlipidemia, hypertension anxiety and melanoma who presents with her today with concern for low back pain but also acknowledges left-sided abdominal pain as well as nausea and reduced appetite with some weight loss for 4 months. Patient's exam today is concerning for an abdominal mass, the area of her back pain is notable for a mobile mass in the soft tissue. CT scan abdomen pelvis with contrast is obtained and patient is found to have a large mass likely splenic origination possibly pancreatic origination as well as multiple soft tissue masses of the abdominal mesentery and abdominal wall, as well as lymphadenopathy likely consistent with metastatic disease. Did request consult and referral to Oncology at [facility] however patient was discharged prior to hearing back from them. General surgery on-call was also consulted regarding this patient who reviewed her imaging and noted he did not think that there was likely any palliative surgery he could provide for her. We were able to obtain a appointment with patient's primary care provider in 3 days' time on Friday to discuss further plans and meeting with oncology as well as end of life goals. Did advise the patient of the findings and concern that this is most likely cancer and most likely metastatic based on the imaging today. Considered additional imaging with CT for head neck and chest however this is deferred to oncology/PCP. Patient's labs were generally okay with the exception of platelets being elevated to over 500, suspicious for splenic mass involvement. Patient was provided with a prescription for pain medicine and will follow up with her primary care provider on Friday. Return precautions provided, follow-up plan discussed, all questions answered. <Francine Woodward, DO - Last Filed: 10/04/23 07:39> Lab Data Labs: Lab Results 10/01/23 10/01/23 Range/Units 11:23 11:58 WBC 11.9 H (4.5-11.0) X10^3/uL RBC 4.66 (4.0-5.2) X10^6/uL Hgb 12.9 (12.0-16.0) g/dL Hct 40.2 (36-46) % MCV 86.2 (80-100) fL MCH 27.7 (26-34) PG MCHC 32.1 (30-36) % RDW 14.1 (11.6-14.8) % Plt Count 559 H (150-400) X10^3/uL Neut % (Auto) 70.1 (50-75) % Lymph % (Auto) 14.7 L (25-40) % [place] % (Auto) 12.3 (3-14) % Eos % (Auto) 1.7 L (2-4) % Baso % (Auto) 1.2 (0-2) % Neut # (Auto) 8300 H (7502-0850) /uL Lymph # (Auto) 1700 (8248-0344) /uL [place] # (Auto) 1500 H (0-900) /uL Eos # (Auto) 200 (0-450) /uL Baso # (Auto) 100 (0-100) /uL Sodium 133 L (137-145) mmol/L Potassium 3.9 (3.4-5.1) mmol/L Chloride 97 L (98-107) mmol/L Carbon Dioxide 24 (22-32) mmol/L BUN 12 (7-17) mg/dL Creatinine 0.48 L (0.52-1.04) mg/dL Estimated GFR > 60 (>60) mL/min BUN/Creatinine Ratio 25.0 H (6-22) Glucose 97 (80-110) mg/dL Calcium 9.4 (8.4-10.2) mg/dL Total Bilirubin 0.5 (0.2-1.3) mg/dL AST 34 (14-36) IU/L ALT 20 (<35) IU/L Alkaline Phosphatase 93 (38-126) U/L Total Protein 6.8 (6.3-8.2) g/dL Albumin 3.8 (3.5-5.0) g/dL Globulin 3.0 (1.7-4.1) g/dL Albumin/Globulin Ratio 1.3 (1.0-2.8) Lipase 241 (23-300) U/L Urine RBC 1-5/hpf (0-5/HPF) Urine WBC 10-30/hpf H (0-5/HPF) Ur Squamous Epith Cells 1-5 /hpf (0-5/HPF) Urine Bacteria Many (>30) H (None) Ur Culture Indicated? Specimen cultured Vol Urine Centrifuged 10ml (spun) Urine Dip Bedside Urine Glucose Negative Bedside Urine Bilirubin - Negative Bedside Urine Ketone +/- 5 Urine Specific [place] 1.025 Bedside Urine Occult Blood - Negative Bedside Urine pH 6.0 Bedside Urine Protein - Negative Bedside Urine Urobilinogen - Negative Bedside Urine Nitrite + Positive Bedside Urine Leukocytes + 70 Esterase Discharge Plan Departure Patient Disposition: Home Clinical Impression: Abdominal mass, left upper quadrant, Intra-abdominal lymphadenopathy, Nausea Activity Restrictions/Additional Instructions: *You have been diagnosed with [left upper quadrant abdominal mass, lymphadenopathy-abdominal, nausea] *What to do: *Please continue to take your regular medications as directed. [2 ] New medication prescriptions sent to your pharmacy: [Zofran, hydrocodone] [ ] New medication written as a paper prescription [ ] No new medications given *Please follow up with your primary care provider in 2-3 days, call for an appointment. Let them know you were seen in the Emergency Department and that we ask that you be seen in follow up. We will electronically transmit a record of today's note if your PCP is in our system. I am sorry had such a long day in the emergency department. As we discussed your CT scan was concerning for a mass possibly connected to your spleen or pancreas, he also had an abnormal lab of increased platelets. I did discuss her situation with our general surgeon and talk to Dr. Huerta who was working in Dr. Muniz office today as Dr. Muniz is away. We were able to get you an appointment with Dr. Muniz on Friday when he gets back; I believe this was set for 2:00 p.m. but you should call the office to confirm. You will need to see Oncology, unfortunately I was not able to touch base with them today despite multiple attempts however you can work with Dr. Muniz on this and find an oncologist to work with moving forward. I did prescribe nausea medicine as well as hydrocodone for pain. I encourage you to only use the hydrocodone if you need to if your pain gets too severe and your unable to control it with the heating pad if been using and Tylenol. Take care. *If you do not have a primary care provider please contact the [facility] Resource line at [phone]. They will ask some questions about your medical history and help get you set up with a doctor in the community. *Return to Emergency Department if you should have any new, worsening or concerning symptoms, such as [fever greater than 101 F, shaking chills, worsening pain, persistent vomiting or other bothersome symptoms] Prescriptions: New ondansetron 4 mg tablet,disintegrating 4 mg PO Q8H PRN (Reason: nausea and vomiting) 10 Days Qty: 30 0RF No Action aspirin 325 mg tablet 325 mg PO DAILY Qty: 90 3RF losartan 50 mg tablet 50 mg PO DAILY Qty: 90 3RF acetaminophen-codeine 300-30 mg tablet 1 tab PO Q8H PRN (Reason: pain) Qty: 20 0RF acyclovir 400 mg tablet 400 mg PO TID Qty: 30 5RF Patient Comments: august 2020 acyclovir-hydrocortisone 5-1 % cream 1 applic TOPICAL 5XD Qty: 15 1RF simvastatin 80 mg tablet 80 mg PO BEDTIME Qty: 90 3RF zolpidem [Ambien CR] 12.5 mg tablet,ext release multiphase 12.5 mg PO BEDTIME PRN (Reason: insomnia) Qty: 90 1RF cyclobenzaprine 5 mg tablet 5 mg PO Q8H PRN (Reason: muscle spasm) Qty: 30 5RF magnesium 500 mg Tablet 15 mg PO BEDTIME Referrals: Ced Muniz DO [Primary Care Provider] - Stand Alone Forms: Patient Portal/API ED Sign-out <Francine Woodward DO - Last Filed: 10/04/23 07:39> [facility]: I was available for consultation. I was consulted in how to directly manage patient. Recommended closed loop communication with PCP and close follow-up with Oncology. I did not evaluate patient myself.
--- NOTE | 2023-10-01 11:44 | DI.CT.S_ITS ---
PROCEDURE: CT ABDOMEN PELVIS W CON INDICATIONS: left UQ abd mass/pain, nausea x4mo worsening TECHNIQUE: After the administration of intravenous contrast, axial sections acquired from the lung bases to the pubic symphysis. Coronal and sagittal reformats were performed. For radiation dose reduction, the following was used: automated exposure control, adjustment of mA and/or kV according to patient size. COMPARISON: None. FINDINGS: Image quality: Diagnostic. Lower Chest: No significant findings. ABDOMEN: Liver: No solid mass. Gallbladder: No radiopaque gallstones or wall thickening. Biliary ducts: No biliary dilation. Pancreas: No ductal dilation. Pancreas and Spleen: Within the left upper quadrant there is a 16.7 x 9.1 x 13.1 cm heterogeneously enhancing mass. There is a small appearance of normal spleen along the superior most aspect. However, it is otherwise indistinguishable from the larger mass. Arising from the medial aspect of the mass is abnormal soft tissue densities which infiltrate the pancreas. Adrenal Glands: No adrenal nodules. Kidneys and Ureters: No hydronephrosis. No solid mass. No complex renal cystic lesion which requires follow up. Stomach and Bowel: Normal colonic caliber, without significant wall thickening. Ventral Wall: No significant ventral hernia. Abdominal Nodes: Multiple periaortic and aortic caval soft tissue masses are present. A confluent lobulated mass in the left periaortic region measures 5.2 x 5.3 cm on series 2, image 36 causing superior displacement of the left renal vein. In additional, smaller abnormal lymph nodes are present. There is a low-attenuation mesenteric mass in the anterior right abdomen on series 2, image 46 measuring 1.9 x 1.9 cm. Additional focus is present in the left anterior abdomen on series 2, image 37 measuring 2.4 x 2.4 cm. Additional smaller foci are present including 1.5 x 1.8 cm series 2, image 34 in the right upper abdomen. Vessels: Aorta and inferior vena cava are normal in size. PELVIS: Pelvic Organs: Unremarkable. Bladder: No bladder wall thickening, accounting for underdistention. Pelvic Nodes: No enlarged lymph nodes. Miscellaneous: No inguinal hernias are seen. Bones: No aggressive osseous abnormality. IMPRESSION: Large left upper quadrant mass becoming indistinguishable from the spleen this is suspected to be a large infiltrating splenic mass. However, and originally distinct mass which has secondarily invaded the spleen cannot be definitively excluded. However, it is in direct approximation to abnormal soft tissue densities arising from the medial central portion into the pancreas. Again, primary pancreatic malignancy versus secondary extension is difficult to determine. Multiple areas of abnormal adenopathy within the abdomen as well as abnormal soft tissue masses within the mesenteric fat, all consistent with malignancy/metastatic disease. Dictated by: Christine Guaman M.D. on 10/01/2023 at 13:18 Approved by: Christine Guaman M.D. on 10/01/2023 at 13:26
[2023-10-01] MEDS: ONDANSETRON 4 MG/2 ML INJ IV (12:02)
[2023-10-01] MEDS: HYDROMORPHONE 0.5 MG INJ IV ×2 (12:04→13:38)
[2023-10-01 12:05] LABS: Add Manual Diff / Slide Review NO; Basophils Absolute Auto 100 /uL (0-100); Basophils Percent Auto 1.2 % (0-2); Eosinophils Absolute Auto 200 /uL (0-450); Eosinophils Percent Auto 1.7 % (2-4); Hematocrit 40.2 % (36-46); Hemoglobin 12.9 g/dL (12.0-16.0); Lymphocytes Absolute Auto 1700 /uL (1100-4500); Lymphocytes Percent Auto 14.7 % (25-40); Mean Corpuscular HGB Conc 32.1 % (30-36); Mean Corpuscular Hemoglobin 27.7 PG (26-34); Mean Corpuscular Volume 86.2 fL (80-100); Monocytes Absolute Auto 1500 /uL (0-900); Monocytes Percent Auto 12.3 % (3-14); Neutrophils Absolute Auto 8300 /uL (1500-7000); Neutrophils Percent Auto 70.1 % (50-75); Platelet Count 559 X10^3/uL (150-400); Red Blood Cell Count 4.66 X10^6/uL (4.0-5.2); Red Cell Distribution Width 14.1 % (11.6-14.8); White Blood Cell Count 11.9 X10^3/uL (4.5-11.0)
[2023-10-01 12:33] LABS: Alanine Aminotransferase 20 IU/L (<35); Albumin 3.8 g/dL (3.5-5.0); Albumin Globulin Ratio 1.3 (1.0-2.8); Alkaline Phosphatase 93 U/L (38-126); Aspartate Aminotransferase 34 IU/L (14-36); Bilirubin Total 0.5 mg/dL (0.2-1.3); Blood Urea Nitrogen 12 mg/dL (7-17); Calcium 9.4 mg/dL (8.4-10.2); Carbon Dioxide 24 mmol/L (22-32); Chloride 97 mmol/L (98-107); Estimated Glomerular Filt Rate > 60 mL/min (>60); Glucose 97 mg/dL (80-110); HEMOLYSIS < 15 (0-50); Lipase 241 U/L (23-300); Potassium 3.9 mmol/L (3.4-5.1); Sodium 133 mmol/L (137-145); Total Protein 6.8 g/dL (6.3-8.2)
[2023-10-01 12:34] LABS: Bacteria Urine Many (>30); Culture Indicated Urine Specimen Cultured; RBC Urine 1-5/HPF (0-5/HPF); Squamous Epithelial Cell Urine 1-5 /HPF (0-5/HPF); Urine Volume 10mL (spun); WBC Urine 10-30/HPF (0-5/HPF)
[2023-10-01 13:42] VITALS: BP 136/74; PULSE 100; RESP 20; TEMP 36.7; O2SAT 95
[2023-10-01 17:07] VITALS: BP 149/72; PULSE 98; RESP 18; O2SAT 97
== END 2023-10-01 17:05 | disposition home or self-care (01) ==
PROVIDERS: Emergency Provider Student in an Organized Health Care Education/Training Program; PCP Family Medicine
DX: R10.12 Left upper quadrant pain (principal); R59.0 Localized enlarged lymph nodes; R11.0 Nausea
CPT/HCPCS: 36415; 74177; 80053; 81003; 81015; 83690; 85025; 87077; 87086; 87186; 96374; 96375; 99284; J1170; J2405

== ENCOUNTER 2023-10-12 09:38 | Emergency (ER) | payer MEDICARE, SELFPAY ==
[2023-10-12 09:50] VITALS: BP 173/87; PULSE 104; RESP 15; TEMP 36.7; O2SAT 97; BMI 23.9
--- NOTE | 2023-10-12 09:50 | ED.GENADULT ---
HPI - General Adult General Chief complaint: Neck Pain/Injury Stated complaint: neck px Time Seen by Provider: 10/12/23 09:38 History of Present Illness HPI narrative: 78-year-old woman with a history of alcohol use disorder, chronic arthritis with chronic neck pain, prior history of melanoma, hypertension and left upper quadrant mass diagnosed on October 01 with oncology appointment for further workup and diagnosis later this week presents with acute onset neck pain. She states that it was a bit sore yesterday but when she woke up this morning she could not move her neck forward or sideways, she ended up calling 911 because it was so painful. She does have chronic pain medications available at home and 9:00 a.m. did take 5 mg of oral oxycodone. In describing her neck pain it seems to be all over the upper chest and neck without a single-point of pain. She notes that when she takes a deep breath her abdomen hurts but she has not having any neck or thoracic pain. She does not describe any fevers. Does not recall any recent falls or trauma to the area. No diarrhea, not complaining of headaches chest pain or palpitations. Related Data Home Medications Medication Instructions Recorded Confirmed magnesium 500 mg tablet 15 mg PO BEDTIME 01/01/21 10/06/23 cephalexin 250 mg capsule mg PO 10/06/23 10/06/23 sertraline 100 mg tablet mg PO 10/06/23 10/06/23 Previous Rx's Medication Instructions Recorded aspirin 325 mg tablet 325 mg PO DAILY #90 tabs 10/21/19 acyclovir 400 mg tablet 400 mg PO TID #30 tabs 04/22/23 acyclovir 5 %-hydrocortisone 1 % 1 applic topical 5XD #15 grams 04/22/23 topical cream simvastatin 80 mg tablet 80 mg PO BEDTIME #90 tabs 04/22/23 losartan 50 mg tablet 50 mg PO DAILY #90 tabs 07/07/23 cyclobenzaprine 5 mg tablet 5 mg PO Q8H PRN muscle spasm #30 08/05/23 tabs acetaminophen 300 mg-codeine 30 mg 1 tab PO Q8H PRN pain #20 tabs 09/30/23 tablet ondansetron 4 mg disintegrating 4 mg PO Q8H PRN nausea and 10/06/23 tablet vomiting #60 tabs oxycodone 10 mg tablet 10 mg PO Q4H PRN pain 30 days #180 10/06/23 tabs oxycodone 10 mg tablet 10 mg PO Q4H PRN pain 30 days #180 10/06/23 tabs oxycodone 10 mg tablet 10 mg PO Q4H PRN pain 30 days #180 10/06/23 tabs zolpidem 12.5 mg tablet,extended 12.5 mg PO BEDTIME PRN insomnia 10/06/23 release,multiphase (Ambien CR) #90 tabs Allergies Allergy/AdvReac Type Severity Reaction Status Date / Time No Known Drug Allergies Allergy Verified 10/06/23 08:45 Review of Systems Review of Systems Narrative: Pertinent positive and negative findings as per HPI Patient History Medical History Insomnia Osteopenia Neck pain Arthritis Constipation Hyperlipidemia Essential hypertension Osteoarthritis Seasonal allergies Post traumatic stress disorder (PTSD) (~1986) Depression Anxiety Stroke (~2004) Neck problem Chronic back pain Mumps Measles Chicken pox (~1945) Hearing loss Fibroids Endometriosis Skin cancer Surgical History H/O toe surgery Anesthesia Hx of removal of ovary (~1967) History of bunionectomy Fractures (~2001) Cataracts, bilateral (~1998) History of hysterectomy (~1994) Hemorrhoid (~1973) Melanoma Family History Father Heart disease Brother Alzheimer's disease Sister Alcoholism Mental health problem Stroke Mother No problems noted. Social History marital status: number of children: 3 household members: spouse lives independently: Yes education level: high school occupational status: other Smoking Status: Former smoker alcohol intake: current substance use type: does not use Smoking Status: Former smoker alcohol intake frequency: 3 or more drinks per day Substance Use Type: does not use Exam Initial Vital Signs Initial Vital Signs: Vital Signs Temperature 98.1 F 10/12/23 09:50 Pulse Rate 104 H 10/12/23 09:50 Respiratory Rate 15 10/12/23 09:50 Blood Pressure 173/87 H 10/12/23 09:50 Pulse Oximetry 97 10/12/23 09:50 Oxygen Delivery Method Room Air 10/12/23 09:50 General: Chronically ill-appearing with neck pillow in place obviously uncomfortable secondary to neck pain HEENT: Moist mucous membranes, normal sclera with reactive pupils, Neck: She has tenderness in the left supraclavicular fossa and tenderness with palpation along the left clavicle. She has right trapezius muscle pain right paracervical spinous muscle pain. She complains of tenderness along her entire midline cervical spine but there is no objective point tenderness with palpation. Both trapezii do have significant muscle spasm. There is no skin changes to suggest cellulitis or abscess. Respiratory: Lungs are clear to auscultation, no wheezing no rales no rhonchi. Full and symmetrical air movement Cardiac: Regular rate and rhythm, soft 2/6 murmur Abdomen: Soft, tender in the left upper quadrant and throughout the entire left side of her abdomen without rebound or guarding Skin: Thin but otherwise Warm and dry, no rashes Neurologic: Grossly neurologically intact with no obvious asymmetries or abnormalities Extremities: No trauma, well perfused Psych: Cooperative but slightly short tempered with exam and questions. Course Orders Ordered: ED Orders 10/12/23 10:02 CT cervical spine w con Stat CT chest w con Stat 10/12/23 10:34 Complete Blood Count AUTO DIFF Stat Comprehensive Metabolic Panel Stat Hydromorphone HCl (Hydromorphone 0.5 Mg Inj) 0.5 mg IV Q15MIN PRN PRN Reason: Pain, Last Admin: 10/12/23 10:55 Dose: 0.5 mg Documented By: MEAGAN Discontinued Medications Ketorolac Tromethamine (Ketorolac 30 Mg/Ml Vial) 15 mg IV NOW ONE Stop: 10/12/23 10:05 Last Admin: 10/12/23 10:53 Dose: 15 mg Documented By: MEAGAN Vital Signs Vital signs: Vital Signs - 8 hr 10/12/23 09:50 Temperature 98.1 F Pulse Rate 104 H Respiratory Rate 15 Blood Pressure 173/87 H Pulse Oximetry 97 Oxygen Delivery Method Room Air Medical Decision Making Lab Data 10/12/23 10:34 10/12/23 10:34 Labs: Lab Results 10/12/23 Range/Units 10:34 WBC 13.7 H (4.5-11.0) X10^3/uL RBC 4.29 (4.0-5.2) X10^6/uL Hgb 11.8 L (12.0-16.0) g/dL Hct 36.1 (36-46) % MCV 84.2 (80-100) fL MCH 27.6 (26-34) PG MCHC 32.8 (30-36) % RDW 14.0 (11.6-14.8) % Plt Count 662 H (150-400) X10^3/uL Neut % (Auto) 75.7 H (50-75) % Lymph % (Auto) 8.2 L (25-40) % Crawford % (Auto) 14.7 H (3-14) % Eos % (Auto) 0.4 L (2-4) % Baso % (Auto) 1.0 (0-2) % Neut # (Auto) 78969 H (8361-8864) /uL Lymph # (Auto) 1100 (3104-9421) /uL Crawford # (Auto) 2000 H (0-900) /uL Eos # (Auto) 100 (0-450) /uL Baso # (Auto) 100 (0-100) /uL Sodium 130 L (137-145) mmol/L Potassium 4.6 (3.4-5.1) mmol/L Chloride 94 L (98-107) mmol/L Carbon Dioxide 27 (22-32) mmol/L BUN 10 (7-17) mg/dL Creatinine 0.45 L (0.52-1.04) mg/dL Estimated GFR > 60 (>60) mL/min BUN/Creatinine Ratio 22.2 H (6-22) Glucose 107 (80-110) mg/dL Calcium 9.0 (8.4-10.2) mg/dL Total Bilirubin 0.5 (0.2-1.3) mg/dL AST 36 (14-36) IU/L ALT 21 (<35) IU/L Alkaline Phosphatase 84 (38-126) U/L Total Protein 6.5 (6.3-8.2) g/dL Albumin 3.4 L (3.5-5.0) g/dL Globulin 3.1 (1.7-4.1) g/dL Albumin/Globulin Ratio 1.1 (1.0-2.8) MDM Narrative Medical decision making narrative: CC: Neck pain Complicating co-morbidities: Recently diagnosed large left upper quadrant mass, chronic neck pain osteoarthritis and opioid use with alcohol use disorder an self-described at least 3 drinks daily Data collected from: patient, medics, partner Social determinants of health that may influence the patients condition: Medical records reviewed: Primary care note from October 06 is reviewed Differential considered: Acute neck strain, metastatic disease/ bone malignancy Exam documented above, pertinent findings include: Nonphysiologic exam was significant tenderness in the left supra clavicular fossa and left clavicle with right trapezius muscle pain and nonspecific midline cervical spine pain Lab Test results independently reviewed as above. Pertinent findings: CBC shows mild leukocytosis at 13.7 with minimal left shift. No significant anemia Chemistries show mild hyponatremia at 130. Remainder of chemistries are unremarkable Imaging studies independently reviewed: Patient did have a cervical spine MRI in July of 2023 that shows diffuse spondylitic changes with multilevel facet arthropathy and multilevel joint hypertrophy without significant canal stenosis CT scan of the abdomen done on October 01 shows a large left upper quadrant mass (17 x 10 x 13cm) with multiple additional areas of abnormal adenopathy and abnormal soft tissue masses within mesenteric fat all consistent with malignancy/metastatic disease. CT scan of the cervical spine does not show any acute findings specifically no fractures, traumatic subluxation or metastatic bony lesions CT scan of the chest does not show any acute thoracic findings however the abnormally enlarged spleen with upper abdominal pathologic adenopathy and abnormality noted at the tail of the pancreas is again seen. Re-evaluations: CT and lab findings reviewed with patient, her and her daughter. Discussion: 78-year-old woman who presents with left-sided neck pain that is not objectively reproducible. This may well be referred pain from the left upper quadrant abdominal mass. At this point there is no evidence of pathologic fracture, bone metastases in the neck or thoracic vertebrae. No obvious masses or abnormalities in the chest. Patient's neck pain does feel a bit better with the oxycodone given. She has a very appropriate supply of oxycodone given by her primary care physician to use for this exact pain at home. We briefly talked about referred pain and how difficult it can be to treat. Questions were answered and she is safe for discharge Discharge Plan Departure Patient Disposition: Home Clinical Impression: Abdominal mass, left upper quadrant, Referred abdominal pain Activity Restrictions/Additional Instructions: Thank you for coming in today I am not finding a specific reason for your neck pain. There was no sign of infection, no new fractures, does not look like there is any cancer that may have spread to the bones of your neck or upper chest. I suspect that the pain that you are experiencing is actually referred pain from the mass in your left upper quadrant. That area is rubbing up against your diaphragm on the left side. The nerves to your diaphragm go through the left side of your neck. Often times when your diaphragm is irritated you actually have shoulder pain rather than diaphragm Using the oxycodone that you have available at home as you are current you using it is very appropriate. Please make sure you are continuing to use stool softeners or laxatives as needed to prevent constipation. I wish you luck with your oncology appointment upcoming Prescriptions: No Action aspirin 325 mg tablet 325 mg PO DAILY Qty: 90 3RF losartan 50 mg tablet 50 mg PO DAILY Qty: 90 3RF acetaminophen-codeine 300-30 mg tablet 1 tab PO Q8H PRN (Reason: pain) Qty: 20 0RF acyclovir 400 mg tablet 400 mg PO TID Qty: 30 5RF Patient Comments: august 2020 acyclovir-hydrocortisone 5-1 % cream 1 applic TOPICAL 5XD Qty: 15 1RF simvastatin 80 mg tablet 80 mg PO BEDTIME Qty: 90 3RF cyclobenzaprine 5 mg tablet 5 mg PO Q8H PRN (Reason: muscle spasm) Qty: 30 5RF sertraline 100 mg tablet PO cephalexin 250 mg capsule PO ondansetron 4 mg tablet,disintegrating 4 mg PO Q8H PRN (Reason: nausea and vomiting) Qty: 60 11RF oxycodone 10 mg tablet 10 mg PO Q4H PRN (Reason: pain) 30 Days Qty: 180 0RF zolpidem [Ambien CR] 12.5 mg tablet,ext release multiphase 12.5 mg PO BEDTIME PRN (Reason: insomnia) Qty: 90 1RF oxycodone 10 mg tablet 10 mg PO Q4H PRN (Reason: pain) 30 Days Qty: 180 0RF Rx Instructions: rx 2/3 oxycodone 10 mg tablet 10 mg PO Q4H PRN (Reason: pain) 30 Days Qty: 180 0RF Rx Instructions: rx 3/3 magnesium 500 mg Tablet 15 mg PO BEDTIME Referrals: Ced Muniz DO [Primary Care Provider] - Stand Alone Forms: Patient Portal/API
--- NOTE | 2023-10-12 10:02 | DI.CT.S_ITS ---
PROCEDURE: CT CHEST W CON INDICATIONS: L upper lung/clavicle pain TECHNIQUE: After the administration of intravenous contrast, 5 mm thick sections acquired from the pulmonary apices to the posterior costophrenic angles. 1 mm axial lung, 5 mm thick coronal and sagittal reformats and 7 mm axial MIP were acquired. For radiation dose reduction, the following was used: automated exposure control, adjustment of mA and/or kV according to patient size. COMPARISON: [facility], CT, CT CERVICAL SPINE WO CON, 10/12/2023, 10:26. [facility], CT, CT ABDOMEN PELVIS W CON, 10/01/2023, 13:02. FINDINGS: Image quality: Diagnostic. Lower Neck: No enlarged lymph nodes. Thyroid: No thyroid nodules which require sonographic follow up, per consensus guidelines. Axillae: No enlarged lymph nodes. Chest Wall: Unremarkable. Bones: Unremarkable. Lungs and Pleura: Centrilobular emphysematous changes are seen. These are more prominent at the lung apices than at the lung bases. No pneumothorax or pleural effusions. No consolidation or suspicious nodules. Heart: Heart size is normal. No pericardial effusion. Thoracic Vessels: The aorta and pulmonary arteries demonstrate normal size. Mediastinum and Jennifer: No enlarged lymph nodes. Borderline prominent mediastinal lymph nodes are seen. Esophagus: No wall thickening. No hiatal hernia. Upper Abdomen: The spleen is distinctly abnormal, with areas of poor enhancement. The spleen measures 15.5 cm AP. There is partial visualization of enlarged upper abdominal lymph nodes. The tail of the pancreas is abnormal. IMPRESSION: No significant abnormality of the left upper lung or left clavicle can be seen. Centrilobular emphysematous changes are seen. Abnormally enlarged spleen with upper abdominal lymph nodes. There are borderline prominent mediastinal lymph nodes, without marjorie enlargement. Neoplasm is suspected. (Please consider referred pain to the left shoulder region from the left upper quadrant abnormalities.) The tail of the pancreas is abnormal. Dictated by: Srikanth Mercado M.D. on 10/12/2023 at 10:13 Approved by: Srikanth Mercado M.D. on 10/12/2023 at 10:18
--- NOTE | 2023-10-12 10:02 | DI.CT.S_ITS ---
PROCEDURE: CT CERVICAL SPINE WO CON INDICATIONS: acute onset severe neck pain TECHNIQUE: Noncontrast 3 mm thick sections acquired from the skull base to the T4 level. Sagittal and coronal reformats were then constructed. For radiation dose reduction, the following was used: automated exposure control, adjustment of mA and/or kV according to patient size. COMPARISON: [facility], MR, MR CERVICAL SPINE WO CON, 08/05/2023, 19:43. [facility], CR, XR CERVICAL SPINE WITH FLEXION EXTENSION, 06/16/2023, 7:36. [facility], CT, CT CHEST W CON, 10/12/2023, 10:26. FINDINGS: Image quality: Excellent. Bones: No fractures or dislocations. Visualized superior ribs are intact. Focal degenerative change is seen involving the C1-C2 interface anteriorly. There is mild disc space narrowing seen at C3-C4, with at least moderate disc space narrowing at C4-C5. Moderate to severe disc space narrowing is seen at C5-C6. Moderate disc space narrowing is seen at C6-C7. Endplate irregularity and sclerosis are seen, which are worst at the C5-C6 level. Posteriorly acted endplate osteophytes are seen, which are worst at C4-C5. Multiple levels of significant facet hypertrophy can be seen. Soft tissues: Prevertebral soft tissues are normal in thickness. No paravertebral hematomas. No apical pneumothoraces. Emphysematous changes can be seen at the lung apices. IMPRESSION: No displaced fracture or traumatic subluxation. Multiple levels of degenerative change are seen, which are worst at C4-C5 and C5-C6. Dictated by: Srikanth Mercado M.D. on 10/12/2023 at 10:11 Approved by: Srikanth Mercado M.D. on 10/12/2023 at 10:13
[2023-10-12 10:40] LABS: Add Manual Diff / Slide Review NO; Basophils Absolute Auto 100 /uL (0-100); Eosinophils Absolute Auto 100 /uL (0-450); Eosinophils Percent Auto 0.4 % (2-4); Hematocrit 36.1 % (36-46); Hemoglobin 11.8 g/dL (12.0-16.0); Lymphocytes Absolute Auto 1100 /uL (1100-4500); Lymphocytes Percent Auto 8.2 % (25-40); Mean Corpuscular HGB Conc 32.8 % (30-36); Mean Corpuscular Hemoglobin 27.6 PG (26-34); Mean Corpuscular Volume 84.2 fL (80-100); Monocytes Absolute Auto 2000 /uL (0-900); Monocytes Percent Auto 14.7 % (3-14); Neutrophils Absolute Auto 10400 /uL (1500-7000); Neutrophils Percent Auto 75.7 % (50-75); Platelet Count 662 X10^3/uL (150-400); Red Blood Cell Count 4.29 X10^6/uL (4.0-5.2); White Blood Cell Count 13.7 X10^3/uL (4.5-11.0)
[2023-10-12 10:52] LABS: Alanine Aminotransferase 21 IU/L (<35); Albumin 3.4 g/dL (3.5-5.0); Albumin Globulin Ratio 1.1 (1.0-2.8); Alkaline Phosphatase 84 U/L (38-126); Aspartate Aminotransferase 36 IU/L (14-36); BUN Creatinine Ratio 22.2 (6-22); Bilirubin Total 0.5 mg/dL (0.2-1.3); Blood Urea Nitrogen 10 mg/dL (7-17); Carbon Dioxide 27 mmol/L (22-32); Chloride 94 mmol/L (98-107); Estimated Glomerular Filt Rate > 60 mL/min (>60); Globulin 3.1 g/dL (1.7-4.1); Glucose 107 mg/dL (80-110); HEMOLYSIS 28 (0-50); Potassium 4.6 mmol/L (3.4-5.1); Sodium 130 mmol/L (137-145); Total Protein 6.5 g/dL (6.3-8.2)
[2023-10-12] MEDS: KETOROLAC 30 MG/ML VIAL 15 MG IV (10:53)
[2023-10-12] MEDS: HYDROMORPHONE 0.5 MG INJ IV (10:55)
[2023-10-12 11:11] VITALS: PULSE 100; O2SAT 94
[2023-10-12 11:30] VITALS: BP 129/75; PULSE 98; O2SAT 92
[2023-10-12 11:47] VITALS: BP 133/81; PULSE 100; O2SAT 93
== END 2023-10-12 12:00 | disposition home or self-care (01) ==
PROVIDERS: Emergency Provider Emergency Medicine; PCP Family Medicine
DX: R10.32 Left lower quadrant pain (principal); R19.02 Left upper quadrant abdominal swelling, mass and lump
CPT/HCPCS: 36415; 71260; 72126; 80053; 85025; 96374; 96375; 99284; J1170; J1885; Q9967

== ENCOUNTER 2023-10-26 08:51 | Emergency (ER) | payer MEDICARE, SELFPAY ==
[2023-10-26] VITALS (7 sets, daily range): BP systolic 121–128; BP diastolic 60–69; PULSE 87–94; RESP 18–20; TEMP 36.5; O2SAT 93–98; BMI 22.1
--- NOTE | 2023-10-26 09:57 | ED.GENADULT ---
HPI - General Adult General Chief complaint: Abdominal Pain Stated complaint: blockage of bowels Time Seen by Provider: 10/26/23 09:38 Source: patient and family Mode of arrival: Family Vehicle History of Present Illness HPI narrative: 78-year-old female. The end of last week she underwent a biopsy for an intra-abdominal mass they are concerned as melanoma. She has been on pain medicine. She is here feeling like she is constipated. She states she has quite a bit of pressure in her rectum. She is tried Dulcolax at home. They also attempted an enema at home. It was 1 enema but it was divided into 2 doses. This did not provide any relief. She was having some nausea but no vomiting. No fevers. No abdominal distention. No urinary symptoms. Related Data Home Medications Medication Instructions Recorded Confirmed magnesium 500 mg tablet 15 mg PO BEDTIME 01/01/21 10/06/23 cephalexin 250 mg capsule mg PO 10/06/23 10/06/23 sertraline 100 mg tablet mg PO 10/06/23 10/06/23 Previous Rx's Medication Instructions Recorded aspirin 325 mg tablet 325 mg PO DAILY #90 tabs 10/21/19 acyclovir 400 mg tablet 400 mg PO TID #30 tabs 04/22/23 acyclovir 5 %-hydrocortisone 1 % 1 applic topical 5XD #15 grams 04/22/23 topical cream simvastatin 80 mg tablet 80 mg PO BEDTIME #90 tabs 04/22/23 losartan 50 mg tablet 50 mg PO DAILY #90 tabs 07/07/23 cyclobenzaprine 5 mg tablet 5 mg PO Q8H PRN muscle spasm #30 08/05/23 tabs acetaminophen 300 mg-codeine 30 mg 1 tab PO Q8H PRN pain #20 tabs 09/30/23 tablet ondansetron 4 mg disintegrating 4 mg PO Q8H PRN nausea and 10/06/23 tablet vomiting #60 tabs oxycodone 10 mg tablet 10 mg PO Q4H PRN pain 30 days #180 10/06/23 tabs oxycodone 10 mg tablet 10 mg PO Q4H PRN pain 30 days #180 10/06/23 tabs oxycodone 10 mg tablet 10 mg PO Q4H PRN pain 30 days #180 10/06/23 tabs zolpidem 12.5 mg tablet,extended 12.5 mg PO BEDTIME PRN insomnia 10/06/23 release,multiphase (Ambien CR) #90 tabs Allergies Allergy/AdvReac Type Severity Reaction Status Date / Time No Known Drug Allergies Allergy Verified 10/26/23 09:23 Review of Systems Constitutional Constitutional: Reports system reviewed and no additional complaints, except as documented Gastrointestinal Gastrointestinal: Reports system reviewed and no additional complaints, except as documented Genitourinary Genitourinary: Reports system reviewed and no additional complaints, except as documented Integumentary/Breasts Skin/Breast: Reports system reviewed and no additional complaints, except as documented Neurologic Neurologic: Reports system reviewed and no additional complaints, except as documented Hematologic/Lymphatic On Anticoagulants: No Patient History Medical History Insomnia Osteopenia Neck pain Arthritis Constipation Hyperlipidemia Essential hypertension Osteoarthritis Seasonal allergies Post traumatic stress disorder (PTSD) (~1986) Depression Anxiety Stroke (~2004) Neck problem Chronic back pain Mumps Measles Chicken pox (~1945) Hearing loss Fibroids Endometriosis Skin cancer Surgical History H/O toe surgery Anesthesia Hx of removal of ovary (~1967) History of bunionectomy Fractures (~2001) Cataracts, bilateral (~1998) History of hysterectomy (~1994) Hemorrhoid (~1973) Melanoma Family History Father Heart disease Brother Alzheimer's disease Sister Alcoholism Mental health problem Stroke Mother No problems noted. Social History marital status: number of children: 3 household members: spouse lives independently: Yes education level: high school occupational status: other Smoking Status: Former smoker alcohol intake: current substance use type: does not use Smoking Status: Former smoker tobacco type: cigarettes alcohol intake frequency: 0-2 drinks per day Substance Use Type: does not use Exam Initial Vital Signs Initial Vital Signs: Vital Signs Temperature 97.7 F 10/26/23 09:18 Pulse Rate 94 H 10/26/23 09:18 Respiratory Rate 18 10/26/23 09:18 Blood Pressure 126/64 10/26/23 09:18 Pulse Oximetry 95 10/26/23 09:18 Oxygen Delivery Method Room Air 10/26/23 09:18 [facility] Head: normal to inspection and normocephalic Resp Effort & Inspection: normal respiratory effort Auscultation: clear to auscultation bilaterally Cardio Rate: regular rate GI Inspection: normal to inspection and non-distended Palpation: soft and No tender Skin General: no rashes or lesions noted Neuro General: patient alert and patient awake Extrem General: capillary refill normal Course Orders Ordered: ED Orders 10/26/23 08:55 Complete Blood Count AUTO DIFF Stat Comprehensive Metabolic Panel Stat Lipase Stat Discontinued Medications Lactulose (Lactulose 20 Gm/30 Ml Solution) 20 gm PO NOW ONE Stop: 10/26/23 09:58 Last Admin: 10/26/23 10:10 Dose: 20 gm Documented By: JAS Ondansetron HCl (Ondansetron 4 Mg/2 Ml Inj) 4 mg IV NOW ONE Stop: 10/26/23 10:54 Last Admin: 10/26/23 11:21 Dose: 4 mg Documented By: ANNIE Sodium Biphosphate/Sodium Phosphate (Fleets Enema) 1 each NM NOW ONE Stop: 10/26/23 09:58 Last Admin: 10/26/23 10:10 Dose: 1 each Documented By: JAS Vital Signs Vital signs: Vital Signs - 8 hr 10/26/23 09:18 10/26/23 09:45 10/26/23 09:59 Temperature 97.7 F Pulse Rate 94 H 88 87 Respiratory Rate 18 Blood Pressure 126/64 Pulse Oximetry 95 93 95 Oxygen Delivery Method Room Air 10/26/23 09:59 10/26/23 10:00 10/26/23 10:00 Temperature Pulse Rate 87 Respiratory Rate Blood Pressure 121/68 127/69 Pulse Oximetry 94 Oxygen Delivery Method Room Air Medical Decision Making Lab Data Lab results reviewed: Yes I reviewed the patient's lab results. 10/26/23 08:55 10/26/23 08:55 Labs: Lab Results 10/26/23 Range/Units 08:55 WBC 12.1 H (4.5-11.0) X10^3/uL RBC 3.92 L (4.0-5.2) X10^6/uL Hgb 10.8 L (12.0-16.0) g/dL Hct 32.9 L (36-46) % MCV 83.8 (80-100) fL MCH 27.5 (26-34) PG MCHC 32.8 (30-36) % RDW 14.2 (11.6-14.8) % Plt Count 683 H (150-400) X10^3/uL Neut % (Auto) 68.6 (50-75) % Lymph % (Auto) 14.6 L (25-40) % [place] % (Auto) 13.3 (3-14) % Eos % (Auto) 2.3 (2-4) % Baso % (Auto) 1.2 (0-2) % Neut # (Auto) 8300 H (7035-8252) /uL Lymph # (Auto) 1800 (0464-1993) /uL [place] # (Auto) 1600 H (0-900) /uL Eos # (Auto) 300 (0-450) /uL Baso # (Auto) 100 (0-100) /uL Sodium 132 L (137-145) mmol/L Potassium 3.6 (3.4-5.1) mmol/L Chloride 100 (98-107) mmol/L Carbon Dioxide 24 (22-32) mmol/L BUN 13 (7-17) mg/dL Creatinine 0.55 (0.52-1.04) mg/dL Estimated GFR > 60 (>60) mL/min BUN/Creatinine Ratio 23.6 H (6-22) Glucose 101 (80-110) mg/dL Calcium 9.1 (8.4-10.2) mg/dL Total Bilirubin 0.5 (0.2-1.3) mg/dL AST 33 (14-36) IU/L ALT 17 (<35) IU/L Alkaline Phosphatase 73 (38-126) U/L Total Protein 6.0 L (6.3-8.2) g/dL Albumin 3.4 L (3.5-5.0) g/dL Globulin 2.6 (1.7-4.1) g/dL Albumin/Globulin Ratio 1.3 (1.0-2.8) Lipase 77 (23-300) U/L MDM Narrative Medical decision making narrative: Patient states that the discomfort that she was having in the left side of her abdomen has been there and there is not new today. States that this is the mass that they biopsied the other day. After an enema here in the ER she did have a bowel movement. She states she is feeling better the pressure in her rectum is improved. Her abdomen is soft. She has not been vomiting. No fevers. We did discuss the possibility of other etiologies such as bowel obstructions however given her improvement of symptoms after the enema we will hold on this for now. Had a long discussion with her and her at bedside about this. We discussed a good bowel regimen for home. Will discharge home with strict return precautions. She expressed understanding and agreement. Discharge Plan Departure Patient Disposition: Home Clinical Impression: Abdominal pain, Constipation Instructions: DI for Constipation Activity Restrictions/Additional Instructions: Continue to take all of your medications as directed and follow all of the instructions given to you by the provider who performed the surgery. Keep all of your scheduled medical appointments. I do recommend a good bowel regimen and this can include a combination of laxatives and stool softeners. Return to the emergency department for new or worsening symptoms like we discussed. Prescriptions: No Action aspirin 325 mg tablet 325 mg PO DAILY Qty: 90 3RF losartan 50 mg tablet 50 mg PO DAILY Qty: 90 3RF acetaminophen-codeine 300-30 mg tablet 1 tab PO Q8H PRN (Reason: pain) Qty: 20 0RF acyclovir 400 mg tablet 400 mg PO TID Qty: 30 5RF Patient Comments: august 2020 acyclovir-hydrocortisone 5-1 % cream 1 applic TOPICAL 5XD Qty: 15 1RF simvastatin 80 mg tablet 80 mg PO BEDTIME Qty: 90 3RF cyclobenzaprine 5 mg tablet 5 mg PO Q8H PRN (Reason: muscle spasm) Qty: 30 5RF sertraline 100 mg tablet PO cephalexin 250 mg capsule PO ondansetron 4 mg tablet,disintegrating 4 mg PO Q8H PRN (Reason: nausea and vomiting) Qty: 60 11RF oxycodone 10 mg tablet 10 mg PO Q4H PRN (Reason: pain) 30 Days Qty: 180 0RF zolpidem [Ambien CR] 12.5 mg tablet,ext release multiphase 12.5 mg PO BEDTIME PRN (Reason: insomnia) Qty: 90 1RF oxycodone 10 mg tablet 10 mg PO Q4H PRN (Reason: pain) 30 Days Qty: 180 0RF Rx Instructions: rx 2/3 oxycodone 10 mg tablet 10 mg PO Q4H PRN (Reason: pain) 30 Days Qty: 180 0RF Rx Instructions: rx 3/3 magnesium 500 mg Tablet 15 mg PO BEDTIME Referrals: Ced Muniz DO [Primary Care Provider] - Stand Alone Forms: Patient Portal/API
[2023-10-26 10:05] LABS: Add Manual Diff / Slide Review NO; Basophils Absolute Auto 100 /uL (0-100); Basophils Percent Auto 1.2 % (0-2); Eosinophils Absolute Auto 300 /uL (0-450); Eosinophils Percent Auto 2.3 % (2-4); Hematocrit 32.9 % (36-46); Hemoglobin 10.8 g/dL (12.0-16.0); Lymphocytes Absolute Auto 1800 /uL (1100-4500); Lymphocytes Percent Auto 14.6 % (25-40); Mean Corpuscular HGB Conc 32.8 % (30-36); Mean Corpuscular Hemoglobin 27.5 PG (26-34); Mean Corpuscular Volume 83.8 fL (80-100); Monocytes Absolute Auto 1600 /uL (0-900); Monocytes Percent Auto 13.3 % (3-14); Neutrophils Absolute Auto 8300 /uL (1500-7000); Neutrophils Percent Auto 68.6 % (50-75); Platelet Count 683 X10^3/uL (150-400); Red Blood Cell Count 3.92 X10^6/uL (4.0-5.2); Red Cell Distribution Width 14.2 % (11.6-14.8); White Blood Cell Count 12.1 X10^3/uL (4.5-11.0)
[2023-10-26] MEDS: LACTULOSE 20 GM/30 ML SOLUTION PO (10:10)
[2023-10-26] MEDS: FLEETS ENEMA 1 EACH PR (10:10)
[2023-10-26 10:19] LABS: Alanine Aminotransferase 17 IU/L (<35); Albumin 3.4 g/dL (3.5-5.0); Albumin Globulin Ratio 1.3 (1.0-2.8); Alkaline Phosphatase 73 U/L (38-126); Aspartate Aminotransferase 33 IU/L (14-36); BUN Creatinine Ratio 23.6 (6-22); Bilirubin Total 0.5 mg/dL (0.2-1.3); Blood Urea Nitrogen 13 mg/dL (7-17); Calcium 9.1 mg/dL (8.4-10.2); Carbon Dioxide 24 mmol/L (22-32); Chloride 100 mmol/L (98-107); Estimated Glomerular Filt Rate > 60 mL/min (>60); Globulin 2.6 g/dL (1.7-4.1); Glucose 101 mg/dL (80-110); HEMOLYSIS < 15 (0-50); Lipase 77 U/L (23-300); Potassium 3.6 mmol/L (3.4-5.1); Sodium 132 mmol/L (137-145)
[2023-10-26] MEDS: ONDANSETRON 4 MG/2 ML INJ IV (11:21)
== END 2023-10-26 12:02 | disposition home or self-care (01) ==
PROVIDERS: Emergency Provider Emergency Medicine; PCP Family Medicine
DX: R10.9 Unspecified abdominal pain (principal); K59.00 Constipation, unspecified
CPT/HCPCS: 36415; 80053; 83690; 85025; 96374; 99284; J2405

== ENCOUNTER → 2024-05-17 16:44 | Outpatient (CLI) | payer MEDICARE, SELFPAY ==
[2024-05-17 17:45] LABS: BUN Creatinine Ratio 22.6 (6-22); Blood Urea Nitrogen 14 mg/dL (7-17); Calcium 9.9 mg/dL (8.4-10.2); Carbon Dioxide 24 mmol/L (22-32); Chloride 102 mmol/L (98-107); Estimated Glomerular Filt Rate > 60 mL/min (>60); Glucose 94 mg/dL (80-110); HEMOLYSIS < 15 (0-50); Potassium 4.6 mmol/L (3.4-5.1); Sodium 135 mmol/L (137-145)
== END ==
PROVIDERS: PCP Family Medicine; Referring Provider Family Medicine; Visit Provider Family Medicine
DX: Z00.00 Encounter for general adult medical examination without abnormal findings (principal)
CPT/HCPCS: 36415; 80048

== ENCOUNTER → 2024-06-15 10:15 | Outpatient (CLI) | payer MEDICARE, SELFPAY ==
[2024-06-15 12:02] LABS: Alanine Aminotransferase 30 IU/L (<35); Albumin 4.2 g/dL (3.5-5.0); Alkaline Phosphatase 89 U/L (38-126); Aspartate Aminotransferase 38 IU/L (14-36); BUN Creatinine Ratio 19.6 (6-22); Bilirubin Total 0.4 mg/dL (0.2-1.3); Blood Urea Nitrogen 11 mg/dL (7-17); Calcium 9.9 mg/dL (8.4-10.2); Carbon Dioxide 27 mmol/L (22-32); Chloride 102 mmol/L (98-107); Cholesterol 193 mg/dL (140-199); Estimated Glomerular Filt Rate > 60 mL/min (>60); Globulin 2.1 g/dL (1.7-4.1); Glucose 96 mg/dL (80-110); HDL Cholesterol 102 mg/dL (40-60); HEMOLYSIS < 15 (0-50); LDL Cholesterol Calculated 74 mg/dL (<100); Potassium 5.1 mmol/L (3.4-5.1); Sodium 136 mmol/L (137-145); Total Protein 6.3 g/dL (6.3-8.2); Triglycerides 85 mg/dL (35-150)
== END ==
PROVIDERS: PCP Family Medicine; Referring Provider Family Medicine; Visit Provider Family Medicine
DX: I63.9 Cerebral infarction, unspecified (principal); I10 Essential (primary) hypertension; E78.5 Hyperlipidemia, unspecified; B00.9 Herpesviral infection, unspecified; C83.38 Diffuse large B-cell lymphoma, lymph nodes of multiple sites; G47.00 Insomnia, unspecified; E78.2 Mixed hyperlipidemia
CPT/HCPCS: 36415; 80053; 80061

== ENCOUNTER → 2024-06-29 08:57 | Outpatient (CLI) | payer MEDICARE, SELFPAY | PROVIDERS: PCP Family Medicine; Visit Provider Physician Assistant Surgical | DX: R30.0 Dysuria (principal); N39.0 Urinary tract infection, site not specified; R31.9 Hematuria, unspecified | CPT/HCPCS: 87077; 87086; 87186 ==

== ENCOUNTER → 2025-05-25 12:13 | Outpatient (CLI) | payer MEDICARE, SELFPAY ==
--- NOTE | 2025-05-25 12:16 | DI.RAD.S_ITS ---
PROCEDURE: XR FOREARM RT 2V INDICATIONS: Rule out fracture distal radius pain TECHNIQUE: 2 views of the forearm were acquired. COMPARISON: None. FINDINGS: Bones: No fractures or dislocations. No suspicious bony lesions. Soft tissues: No suspicious soft tissue calcifications or masses. IMPRESSION: No acute bony abnormality. Dictated by: Ganga Hedrick M.D. on 05/25/2025 at 14:26 Approved by: Ganga Hedrick M.D. on 05/25/2025 at 14:27
== END ==
PROVIDERS: PCP Family Medicine; Referring Provider Family Medicine; Visit Provider Chiropractor
DX: S50.11XA Contusion of right forearm, initial encounter (principal); X58.XXXA Exposure to other specified factors, initial encounter
CPT/HCPCS: 73090